=== PATIENT | female | born 1935 | race Caucasian/White ===

== ENCOUNTER 2019-06-17 17:42 | Inpatient (IN) ==
[2019-06-17] MEDS: Metoprolol XL (24 HR) Succ 50 MG TAB.ER.24H PO SCH (19:59)
[2019-06-17] MEDS: metroNIDAZOLE 500 MG TABLET PO SCH (19:59)
[2019-06-18 06:31] LABS: Basophils % 0.5 %; Eosinophils # 0.1 K/mcL (0.0-0.6); Eosinophils % 1.3 %; Hematocrit 38.5 % (35.3-44.9); Immature Granulocytes % 0.7 % (0-4); Lymphocytes # 0.8 K/mcL (0.6-4.6); Lymphocytes % 14.8 %; Mean Corpuscular HGB Conc 33.8 g/dL (31.6-35.5); Mean Corpuscular Hemoglobin 31.3 pg (28.0-33.3); Mean Corpuscular Volume 92.5 fL (83.0-100.0); Mean Platelet Volume 8.9 fL (9.4-12.4); Monocytes # 0.4 K/mcL (0.0-1.3); Monocytes % 7.9 %; Neutrophils # 4.2 K/mcL (1.6-8.9); Platelet Count 195 K/mcL (140-400); Red Blood Count 4.16 M/mcL (3.82-4.97); Red Cell Distribution Width 13.3 % (11.5-14.5); Segmented Neutrophils % 74.8 %; White Blood Count 5.6 K/mcL (4.3-11.1)
[2019-06-18 07:04] LABS: BUN/Creatinine Ratio 15 (6-26); Blood Urea Nitrogen 13 mg/dL (8-23); Calcium 9.1 mg/dL (8.6-10.3); Carbon Dioxide 27 mEq/L (23-29); Chloride 101 mEq/L (98-107); Glucose 75 mg/dL (70-105); Osmolality,Calculated 279 (280-300); Potassium 3.3 mEq/L (3.5-5.1); Sodium 135 mEq/L (136-145); eGFR For African Americans > 60 (> 60); eGFR For Non-African Americans > 60 (> 60)
[2019-06-18] MEDS: amLODIPine 5 MG TABLET PO SCH (08:41)
[2019-06-18] MEDS: Furosemide 20 MG TABLET PO SCH (08:41)
[2019-06-18] MEDS: metroNIDAZOLE 500 MG TABLET PO SCH ×3 (08:41→21:00)
[2019-06-18] MEDS: Famotidine 20 MG TABLET PO SCH (08:41)
[2019-06-18] MEDS: Metoprolol XL (24 HR) Succ 50 MG TAB.ER.24H PO SCH (16:47)
[2019-06-18] MEDS: Lactobacillus 1 EACH CAP.SPRINK PO SCH (21:00)
[2019-06-19] MEDS: Famotidine 20 MG TABLET PO SCH (09:42)
[2019-06-19] MEDS: Lactobacillus 1 EACH CAP.SPRINK PO SCH ×2 (09:42→21:59)
[2019-06-19] MEDS: Furosemide 20 MG TABLET PO SCH (09:43)
[2019-06-19] MEDS: amLODIPine 5 MG TABLET PO SCH (09:43)
[2019-06-19] MEDS: metroNIDAZOLE 500 MG TABLET PO SCH ×3 (09:43→21:59)
[2019-06-19] MEDS: Metoprolol XL (24 HR) Succ 50 MG TAB.ER.24H PO SCH (17:11)
[2019-06-20] MEDS: Furosemide 20 MG TABLET PO SCH (09:45)
[2019-06-20] MEDS: amLODIPine 5 MG TABLET PO SCH (09:45)
[2019-06-20] MEDS: metroNIDAZOLE 500 MG TABLET PO SCH ×3 (09:46→20:10)
[2019-06-20] MEDS: Famotidine 20 MG TABLET PO SCH (09:46)
[2019-06-20] MEDS: Lactobacillus 1 EACH CAP.SPRINK PO SCH ×2 (09:46→20:11)
[2019-06-20] MEDS: Metoprolol XL (24 HR) Succ 50 MG TAB.ER.24H PO SCH (17:12)
[2019-06-21] MEDS: metroNIDAZOLE 500 MG TABLET PO SCH ×3 (08:37→20:13)
[2019-06-21] MEDS: amLODIPine 5 MG TABLET PO SCH (08:37)
[2019-06-21] MEDS: Lactobacillus 1 EACH CAP.SPRINK PO SCH ×2 (08:37→20:13)
[2019-06-21] MEDS: Furosemide 20 MG TABLET PO SCH (08:37)
[2019-06-21] MEDS: Famotidine 20 MG TABLET PO SCH (08:37)
[2019-06-21] MEDS: Metoprolol XL (24 HR) Succ 50 MG TAB.ER.24H PO SCH (17:33)
[2019-06-22 06:53] VITALS: BP 157/76
[2019-06-22 07:29] LABS: Calcium 9.1 mg/dL (8.6-10.3); Potassium 3.9 mEq/L (3.5-5.1)
[2019-06-22] MEDS: Lactobacillus 1 EACH CAP.SPRINK PO SCH (08:42)
[2019-06-22] MEDS: Famotidine 20 MG TABLET PO SCH (08:42)
[2019-06-22] MEDS: metroNIDAZOLE 500 MG TABLET PO SCH (08:42)
[2019-06-22] MEDS: Furosemide 20 MG TABLET PO SCH (08:42)
[2019-06-22] MEDS: amLODIPine 5 MG TABLET PO SCH (08:43)
== END 2019-06-22 13:22 | disposition short-term general hospital (02) | DRG 392 ==
LOC: INPPIK 18:28
PROVIDERS: ADMIT Internal Medicine; ATTEND Internal Medicine